=== PATIENT | female | born 1940 | race Two or more races ===

== ENCOUNTER 2021-02-23 12:10 | Emergency (ER) | payer OTHER ==
[~2021-02-23] VITALS: Ht 160 cm; Wt 55.3 kg
[2021-02-23] MEDS ORDERED: COZAAR100 MG PO ×2 (13:00→13:01)
[2021-02-23] MEDS ORDERED: GLUMETZA1000 MG PO (13:00)
[2021-02-23] MEDS ORDERED: TENORMIN100 M1 PO (13:01)
== END 2021-02-23 20:06 | disposition home or self-care (01) ==
LOC: ER 12:10
DX: R19.01 Right upper quadrant abdominal swelling, mass and lump (principal)